=== PATIENT | female | born 1985 | race Two or more races ===

== ENCOUNTER 2020-05-09 08:17 | Outpatient (CLI) | payer OTHER ==
[2020-05-09 09:04] LABS: BASOPHILS % (AUTO) 0.4 % (0.0-2.0); EOSINOPHILS # (AUTO) 0.1 K/uL (0-0.4); EOSINOPHILS % (AUTO) 1.8 % (0.0-4.0); HEMATOCRIT 41.1 % (36-48); HEMOGLOBIN 13.7 g/dL (12.0-16.0); LYMPHOCYTES # (AUTO) 1.4 K/uL (2.5-16.5); LYMPHOCYTES % (AUTO) 20.8 % (20.5-51.1); MEAN CORPUSCULAR HEMOGLOBIN 31 pg (27-31); MEAN CORPUSCULAR HGB CONC 33 g/dL (33-37); MONOCYTES # (AUTO) 0.3 K/uL (0.8-1.0); PLATELET COUNT (AUTO) 214 K/uL (140-450); RED BLOOD CELL COUNT(AUTO) 4.47 MIL/uL (4.20-5.40); RED CELL DISTRIBUTION WIDTH 12.9 % (11.6-13.7); WHITE BLOOD COUNT (AUTO) 6.9 K/uL (4.8-10.8)
[2020-05-09 09:17] LABS: BARBITURATE, URINE NEGATIVE ng/ml (NEG <=200); BENZODIAZEPINE, URINE NEGATIVE ng/mL (NEG <=200); CANNABINOID, URINE NEGATIVE ng/mL (NEG <=50); COCAINE, URINE NEGATIVE ng/mL (NEG <=300); OPIATE, URINE NEGATIVE ng/mL (NEG <=2000); PHENCYCLIDINE SCREEN,URINE NEGATIVE ng/mL (NEG <=25)
[2020-05-10 09:10] LABS: HEPATITIS B SURFACE ANTIGEN Negative (Negative); TRIIODOTHYRONINE FREE 3.1 pg/mL (2.0-4.4)
[2020-05-11 06:21] LABS: CHLAMYDIA TRACHOMATIS AMP DNA Negative (Negative)
[2020-05-11 06:48] LABS: T4 (THYROXINE) 12.6 ug/dL (4.5 - 12.0)
== END 2020-05-09 20:49 | disposition home or self-care (01) ==
LOC: MLB 08:17
PROVIDERS: ATTEND Obstetrics & Gynecology
DX: Z33.1 Pregnant state, incidental (principal); E03.9 Hypothyroidism, unspecified
CPT/HCPCS: 36415; 80305; 84436; 84443; 84481; 85025; 86592; 86762; 86886; 86900; 86901; 87086; 87340; 87491

== ENCOUNTER 2020-06-06 10:44 | Outpatient (CLI) | payer OTHER ==
[2020-06-07 09:42] LABS: T4 FREE (DIRECT) 1.41 ng/dL (0.82-1.77)
== END 2020-06-06 17:16 | disposition home or self-care (01) ==
LOC: MLB 10:44
DX: E03.9 Hypothyroidism, unspecified (principal)
CPT/HCPCS: 36415; 84432; 84439; 84443; 86800

== ENCOUNTER 2020-07-15 11:57 | Outpatient (CLI) | payer OTHER ==
[2020-07-15 14:00] LABS: FREE T4 (FREE THYROXINE) 1.11 ng/dL (0.76-1.46); THYROID STIMULATING HORMONE 0.03 uIU/mL (0.34-3.74)
== END 2020-07-15 18:11 | disposition home or self-care (01) ==
LOC: MLB 11:57
DX: C73 Malignant neoplasm of thyroid gland (principal); E03.9 Hypothyroidism, unspecified
CPT/HCPCS: 36415; 84439; 84443; 84480

== ENCOUNTER 2020-09-08 14:04 | Outpatient (CLI) | payer OTHER ==
[2020-09-08 17:04] LABS: FREE T4 (FREE THYROXINE) 1.06 ng/dL (0.76-1.46); THYROID STIMULATING HORMONE 0.04 uIU/mL (0.34-3.74)
== END 2020-09-08 21:31 | disposition home or self-care (01) ==
LOC: MLB 14:04
DX: C73 Malignant neoplasm of thyroid gland (principal); E03.9 Hypothyroidism, unspecified
CPT/HCPCS: 36415; 84439; 84443

== ENCOUNTER 2020-09-20 08:26 | Outpatient (CLI) | payer OTHER | END 2020-09-20 19:00 | disposition home or self-care (01) | LOC: MLB 08:26 | PROVIDERS: ATTEND Obstetrics & Gynecology | DX: Z36.9 Encounter for antenatal screening, unspecified (principal) | CPT/HCPCS: 36415; 82951 ==

== ENCOUNTER 2020-10-28 10:21 | Outpatient (CLI) | payer OTHER ==
[2020-10-28 12:06] LABS: ALBUMIN 2.5 g/dL (3.4-5.0); ANION GAP 12.4 (8-16); CARBON DIOXIDE 24.1 mmol/L (21-32); CREATININE 0.4 mg/dL (0.6-1.3); POTASSIUM 3.5 mmol/L (3.5-5.1); THYROID STIMULATING HORMONE 0.4 uIU/mL (0.34-3.74); TOTAL BILIRUBIN 0.3 mg/dL (0.0-1.0)
[2020-10-30 16:50] LABS: T4 (THYROXINE) 12.2 ug/dL (4.5 - 12.0)
== END 2020-10-28 21:37 | disposition home or self-care (01) ==
LOC: MLB 10:21
PROVIDERS: ATTEND Obstetrics & Gynecology
DX: O26.899 Other specified pregnancy related conditions, unspecified trimester (principal); E03.9 Hypothyroidism, unspecified; Z3A.00 Weeks of gestation of pregnancy not specified
CPT/HCPCS: 36415; 80053; 84436; 84443; 84480